=== PATIENT | male | born 1980 ===

== ENCOUNTER → 2019-03-24 | Outpatient (REF) ==
--- NOTE | 2019-03-24 14:16 | REP ---
Clinical: Pain. Technique: AP, lateral, bilateral oblique views of the right foot. Findings: Osseous structures, joint spaces, and surrounding soft tissues appear relatively age-appropriate. Lateral view suggests pes planus which may be correlated clinically. No significant degenerative changes are appreciated. No acute fracture or dislocation. Impression: Relatively age-appropriate examination. Pes planus. Electronically Signed by Denis Banerjee MD 03/24/2019 02:09 P
== END ==
LOC: M SMT 13:45
PROVIDERS: ATTEND Internal Medicine
DX: M51.36 Other intervertebral disc degeneration, lumbar region (principal); Z02.71 Encounter for disability determination